=== PATIENT | male | born 1960 | race Two or more races ===

== ENCOUNTER 2024-08-02 13:25 | Emergency (ER) | payer OTHER ==
[~2024-08-02] VITALS: Ht 165.1 cm; Wt 75.5 kg
[2024-08-02 13:58] VITALS: BP 116/88; PULSE 111; RESP 16; O2SAT 95
== END 2024-08-02 15:34 | disposition left against medical advice (07) ==
LOC: ER 13:25
DX: S61.213A Laceration without foreign body of left middle finger without damage to nail, initial encounter (principal); R07.81 Pleurodynia; Z53.21 Procedure and treatment not carried out due to patient leaving prior to being seen by health care provider; W45.8XXA Other foreign body or object entering through skin, initial encounter; Y93.89 Activity, other specified; Y92.89 Other specified places as the place of occurrence of the external cause; Y99.8 Other external cause status